=== PATIENT | female | born 1965 | race Two or more races ===

== ENCOUNTER 2024-06-13 04:18 | Day surgery (SDC) | payer BC, OTHER ==
[2024-06-10 11:19] VITALS: BMI 29.6
[2024-06-13] MEDS ORDERED: PHENAZOPYRIDINE HCL 100 MG TABLET (FP) ONE (06:48)
[2024-06-13] MEDS ORDERED: GABAPENTIN 300 MG CAPSULE ONE (06:48)
[2024-06-13] MEDS: GABAPENTIN 300 MG CAPSULE PO ONE (07:01)
[2024-06-13] MEDS: PHENAZOPYRIDINE HCL 100 MG TABLET (FP) PO ONE (07:01)
[2024-06-13] MEDS ORDERED: ACETAMINOPHEN 500 MG TABLET (FP) ONE (07:14)
[2024-06-13] MEDS: ACETAMINOPHEN 500 MG TABLET (FP) PO ONE (07:18)
[2024-06-13] MEDS ORDERED: PROPOFOL 20 ML ONE (07:26)
[2024-06-13] MEDS ORDERED: MIDAZOLAM HCL 2 MG/2 ML SINGLE DOSE VIAL ONE (07:26)
[2024-06-13] MEDS ORDERED: ROCURONIUM BROMIDE 50 MG/5 ML SYRINGE ONE ×2 (07:27→09:20)
[2024-06-13] MEDS ORDERED: LIDOCAINE HCL/PF 2% SDV 5ML VIAL ONE (07:27)
[2024-06-13] MEDS ORDERED: DEXAMETHASONE SOD PHOSPHATE 4 MG/1 ML VIAL ONE (08:15)
[2024-06-13] MEDS ORDERED: ceFAZolin SODIUM 1 GM VIAL ONE (08:15)
[2024-06-13] MEDS: ceFAZolin SODIUM 1 GM VIAL IVPB ONE (08:18)
[2024-06-13] MEDS ORDERED: ONDANSETRON 4 MG/2 ML VIAL ONE (09:10)
[2024-06-13] MEDS ORDERED: METHYLENE BLUE 50 MG/10 ML AMPUL ONE (10:03)
[2024-06-13] MEDS ORDERED: ACETAMINOPHEN INJECTION 100 ML ONE (10:28)
[2024-06-13] MEDS ORDERED: SUGAMMADEX SODIUM 200 MG/2 ML VIAL ONE (10:50)
[2024-06-13] MEDS ORDERED: KETOROLAC TROMETHAMINE 30 MG/1 ML VIAL ONE (11:09)
[2024-06-13] MEDS ORDERED: BISACODYL 5 MG TABLET.DR (FP) PO PRN (11:16)
[2024-06-13] MEDS ORDERED: SIMETHICONE 80 MG TAB.CHEW (FP) PO PRN (11:16)
[2024-06-13] MEDS ORDERED: DOCUSATE SODIUM 100 MG CAPSULE (FP) PO PRN (11:16)
[2024-06-13] MEDS ORDERED: ONDANSETRON 4 MG/2 ML VIAL IVPUSH PRN ×2 (11:16→11:20)
[2024-06-13] MEDS ORDERED: oxyCODONE HCL 5 MG TABLET PO PRN ×4 (11:20→11:31)
[2024-06-13] MEDS: LACTATED RINGERS SOLUTION 1,000 ML IV SCH (12:16)
[2024-06-13 16:13] VITALS: RESP 18
[2024-06-13] MEDS: CEFAZOLIN SODIUM 2 GM in DEXTROSE 5%-WATER - 100 ML IVPB ONE (17:08)
[2024-06-13] MEDS: ACETAMINOPHEN 1000 MG/100 ML BAG IVPB SCH (17:08)
[2024-06-13] MEDS: CEFAZOLIN 1 GM in DEXTROSE 5%-WATER 100 ML IVPB SCH (17:41)
[2024-06-13] MEDS: IBUPROFEN 800 MG/8 ML IJ IVPB SCH (18:19)
[2024-06-13 22:22] LABS: HEMATOCRIT 35.4 % (32.4-45.2); HEMOGLOBIN 11.7 GM/dL (10.7-15.3); MCH 30.1 pg (25.7-33.7); MCHC 33.2 g/dl (32.0-36.0); MEAN CELL VOLUME 90.9 fl (80-96); MEAN PLT VOLUME 8.1 fl (7.5-11.1); PLATELET COUNT 219 10^3/uL (134-434); RDW 14.2 % (11.6-15.6); WHITE BLOOD COUNT 9.2 K/mm3 (4.0-10.0)
[2024-06-13 22:48] LABS: BLOOD UREA NITROGEN 9.3 mg/dL (7-18); CALCIUM 8.8 mg/dL (8.5-10.1)
[2024-06-13 22:52] LABS: CREATININE 0.8 mg/dL (0.55-1.3)
[2024-06-14 07:37] LABS: HEMATOCRIT 33.4 % (32.4-45.2); HEMOGLOBIN 11.4 GM/dL (10.7-15.3); MCH 31.2 pg (25.7-33.7); MCHC 34.1 g/dl (32.0-36.0); MEAN CELL VOLUME 91.5 fl (80-96); MEAN PLT VOLUME 8.6 fl (7.5-11.1); PLATELET COUNT 212 10^3/uL (134-434); RBC 3.65 M/mm3 (3.60-5.2); RDW 13.7 % (11.6-15.6); WHITE BLOOD COUNT 8.3 K/mm3 (4.0-10.0)
[2024-06-14 07:49] LABS: POTASSIUM 3.9 mmol/L (3.5-5.1)
[2024-06-14 07:51] LABS: BLOOD UREA NITROGEN 7.4 mg/dL (7-18); CALCIUM 8.3 mg/dL (8.5-10.1)
[2024-06-14 07:56] LABS: CREATININE 0.8 mg/dL (0.55-1.3)
[2024-06-14] MEDS: IBUPROFEN 600 MG TABLET (FP) PO PRN (09:22)
[2024-06-14] MEDS: ENOXAPARIN NA (PORCINE) 40 MG/0.4 ML DISP.SYRIN SQ SCH (09:23)
[2024-06-14 10:57] VITALS: BP 108/70; PULSE 84; TEMP 98.6
[2024-06-14] MEDS ORDERED: ACETAMINOPHEN 325 MG TABLET (FP) PO PRN (11:16)
== END 2024-06-14 11:05 | disposition home or self-care (01) ==
LOC: JASUSAT 04:18 → JASU-SURG 04:18 → J3W 13:26 → JASUSAT 06-14 11:05
PROVIDERS: ATTEND Obstetrics & Gynecology
PROC: 8E0W4CZ Robotic Assisted Procedure of Trunk Region, Percutaneous Endoscopic Approach (ICD-10-PCS; 2024-06-13)
PROC: 0UB14ZZ Excision of Left Ovary, Percutaneous Endoscopic Approach (ICD-10-PCS; 2024-06-13)
PROC: 0UT94ZZ Resection of Uterus, Percutaneous Endoscopic Approach (ICD-10-PCS; principal; 2024-06-13 07:30)
PROC: 0UT74ZZ Resection of Bilateral Fallopian Tubes, Percutaneous Endoscopic Approach (ICD-10-PCS; 2024-06-13 07:30)
DX: D25.2 Subserosal leiomyoma of uterus (principal); D25.1 Intramural leiomyoma of uterus; N83.8 Other noninflammatory disorders of ovary, fallopian tube and broad ligament; N83.292 Other ovarian cyst, left side
CPT/HCPCS: 58571; 58662; S2900; 36415; 80048; 85027; 86850; 86870; 86880; 86900; 86901; 86902; 88305-TC; 88307-TC; 94010; 94760; J0131; Q9968